=== PATIENT | female | born 1940 | race Caucasian/White ===

== ENCOUNTER 2020-12-30 07:29 | Day surgery (SDC) | payer OTHER ==
--- OUTSIDE RECORDS SUMMARY | 2020-12-30 07:33 | XMS REPORT | Continuity of Care Document ---
:1940 Author Organization [facility] t Address [address] [place] [address] [place] [id number] Care Team Providers Name Role Phone Unavailable Unavailable Unavailable Problems This patient has no known problems. Allergies, Adverse Reactions, Alerts This patient has no known allergies or adverse reactions. Medications This patient has no known medications. Procedures This patient has no known procedures. Results This patient has no known results.
[2020-12-30] MEDS ORDERED: NA CHLORIDE 0.9% 500 ML ONE (08:09)
[2020-12-30 08:53] VITALS: BMI 17.5
[2020-12-30 11:35] VITALS: TEMP 98.1; O2SAT 100
[2020-12-30 13:25] VITALS: BP 110/67
[2020-12-30 14:43] LABS: Hematocrit 31.9 % (36.0-45.0)
== END 2020-12-30 14:25 | disposition home or self-care (01) ==
LOC: DS 07:29
PROVIDERS: ATTEND Family Medicine
DX: D64.9 Anemia, unspecified (principal)
CPT/HCPCS: 36415; 86900; 86850; 86901; 85018; 85014; 36430; P9016 ×2; J7050

== ENCOUNTER 2023-04-17 10:05 | Emergency (ER) | payer OTHER ==
--- OUTSIDE RECORDS SUMMARY | 2023-04-17 10:09 | XMS REPORT | Continuity of Care Document ---
:1940 Author Organization [facility] [place] t Address [address] [place] [address] [place] [address] Care Team Providers Name Role Phone RHINA PARISI Primary Care Physician Unavailable CORA BLEVINS Attending Clinician Unavailable CORA BLEVINS Attending Clinician Unavailable Haim Dang Attending Clinician Unavailable Vaccine, [facility] Attending Clinician Unavailable Dread Cordon MD Attending Clinician DRAED CORDON Attending Clinician Unavailable Doctor Unassigned, [place] Attending Clinician Unavailable Leobardo Davis DO Attending Clinician LEOBARDO DAVIS Attending Clinician Unavailable Alfred Castillo Admitting Clinician Unavailable Haim Dang Admitting Clinician Unavailable Payers Payer Name Policy Type Policy Number Effective Date Expiration Date S holli MEDICARE PART A [id number] 2007 \T\ [id number] 00:00:00 Problems Condition Condition Condition Status Onset Resolution Last Treating Co mments Source Name Details Category Date Date Treatment Clinician Date Cellulitis Cellulitis Disease Active U nivers and and 3-07 [place] abscess [place] buttock 00 Medical Branch Dense Dense Disease Active Univers breast breast 3-07 ity of tissue tissue 00:00: [address] Family Family Disease Active [facility] history of history of 01-23 it y of breast breast 00:00: [place] cancer in cancer in [facility] [place] sister sister Branch Allergies, Adverse Reactions, Alerts Allergy Allergy Status Severity Reaction(s) Onset Inactive Treating Comm ents Source Name Type Date Date Clinician codeine DA Active U Unknown 2021-11 [facility]-21 [place] 00:00: [address] CODEINE DA Active U NAUSEA 2004- [facility] 4- [place] 00:00: [address] No Known DA Active U 2004- [facility] Contrast - [place] Allergie 00:00: [address] No Known DA Active U [facility] Food 02-23 [place] Allergie 00:00: [address] No Known DA Active U [facility] Other 02-23 [place] Allergie 00:00: [address] NO KNOWN Drug Active Univers ALLERGIE Class ity of S [facility] Social History Social Habit Start Date Stop Date Quantity Comments Source Tobacco use and 2022-01-23 2022-01-23 Smokeless tobacco Un iversity of exposure 00:00:00 00:00:[address] [facility] Alcohol intake 2022-01-23 2022-01-23 Ex-drinker [facility] 00:00:00 00:00:00 (finding) [facility] Sex Assigned At [birth year] Universit y of 00:00:00 00:00:00 [facility] Smoking Status Start Date Stop Date Source Never smoked tobacco [facility] Medications Ordered Filled Start Stop Current Ordering Indication Dosage Frequency Signature Comments Components Source Medication Medication Date Date Medication? Clinician (SIG) Name Name ascorbic Yes Take by Univer s acid -07 mouth. ity of (VITAMIN C 11:22: [place] ORAL) Medical Branch BIOTIN ORAL Yes Take by Uni vers 3-07 mouth. ity of 11:22: [place] 14 [facility] Branch rivaroxaban Yes 15mg Take 15 mg Univers (XARELTO) 307 by mouth 2 ity of 15 mg 11:22: (two) [place] tablet 14 times Medical daily. Branch amiodarone Yes 100mg Take 100 Un matt 100 mg 3-07 mg by ity of tablet 11:22: mouth [place] 14 daily. / Medical tablet Branch daily ferrous Yes 324mg Take 324 Unive rs sulfate 324 3-07 mg by ity of mg (65 mg 11:22: mouth [place] iron) EC 14 daily with Medic al tablet breakfast. Branch Zinc 50 mg Yes Take by Univ ers Tab 3-07 mouth. ity of 11:22: [place] [address] Medical Branch TURMERIC Yes Take by Univer s ORAL 3-07 mouth. ity of 11:22: [place] [address] Medical Branch calcium Yes Take by Univers carbonate/v 3-07 mouth. ity of itamin D3 11:22: [place] (VITAMIN 14 Medical D-3 ORAL) Branch vitamin E Yes Take by Unive rs acetate 3-07 mouth. ity of (VITAMIN E 11:22: [place] ORAL) 14 Medical Branch cyanocobala Yes Take by Uni vers min, 3-07 mouth. ity of vitamin 11:22: [place] B-12, 14 Medical (VITAMIN Branch B-12 ORAL) Yes Take by Univer s vit 3-07 mouth. ity of no.124/iron 11:22: [place] /folic Medical ( Branch VITAMIN ORAL) ascorbic Yes Take by Univer s acid 3-07 mouth. ity of (VITAMIN C 11:22: [place] ORAL) 14 Medical Branch BIOTIN ORAL Yes Take by Uni vers 3-07 mouth. ity of 11:22: [place] [address] Medical Branch rivaroxaban Yes 15mg Take 15 mg Univers (XARELTO) 3-07 by mouth 2 ity of 15 mg 11:22: (two) [place] tablet 14 times Medical daily. Branch amiodarone Yes 100mg Take 100 Un matt 100 mg 3-07 mg by ity of tablet 11:22: mouth [place] 14 daily. 11/22 Medical tablet Branch daily ferrous Yes 324mg Take 324 Unive rs sulfate 324 3-07 mg by ity of mg (65 mg 11:22: mouth [place] iron) EC 14 daily with Medic al tablet breakfast. Branch Zinc 50 mg Yes Take by Univ ers Tab 3-07 mouth. ity of 11:22: [place] [address] Medical Branch TURMERIC Yes Take by Univer s ORAL 3-07 mouth. ity of 11:22: [place] 14 Medical Branch calcium Yes Take by Univers carbonate/v 3-07 mouth. ity of itamin D3 11:22: [place] (VITAMIN 14 Medical D-3 ORAL) Branch vitamin E Yes Take by Unive rs acetate 3-07 mouth. ity of (VITAMIN E 11:22: [place] ORAL) 14 Medical Branch cyanocobala Yes Take by Uni vers min, 3-07 mouth. ity of vitamin 11:22: [place] B-12, 14 Medical (VITAMIN Branch B-12 ORAL) Yes Take by Univer s vit 3-07 mouth. ity of no.124/iron 11:22: [place] /folic 14 Medical ( Branch VITAMIN ORAL) ascorbic Yes Take by Univer s acid 3-07 mouth. ity of (VITAMIN C 11:22: [place] ORAL) 14 Medical Branch BIOTIN ORAL Yes Take by Uni vers 3-07 mouth. ity of 11:22: [place] [address] Medical Branch rivaroxaban Yes 15mg Take 15 mg Univers (XARELTO) 3-07 by mouth 2 ity of 15 mg 11:22: (two) [place] tablet 14 times Medical daily. Branch amiodarone Yes 100mg Take 100 Un matt 100 mg 3-07 mg by ity of tablet 11:22: mouth [place] 14 daily. 1/4 Medical tablet Branch daily ferrous Yes 324mg Take 324 Unive rs sulfate 324 3-07 mg by ity of mg (65 mg 11:22: mouth [place] iron) EC 14 daily with Medic al tablet breakfast. Branch Zinc 50 mg Yes Take by Univ ers Tab 3-07 mouth. ity of 11:22: [place] 14 Medical Branch TURMERIC Yes Take by Univer s ORAL 3-07 mouth. ity of 11:22: [place] [address] Medical Branch calcium Yes Take by Univers carbonate/v 3-07 mouth. ity of itamin D3 11:22: [place] (VITAMIN 14 Medical D-3 ORAL) Branch vitamin E Yes Take by Unive rs acetate 3-07 mouth. ity of (VITAMIN E 11:22: [place] ORAL) 14 Medical Branch cyanocobala Yes Take by Uni vers min, 3-07 mouth. ity of vitamin 11:22: [place] B-12, 14 Medical (VITAMIN Branch B-12 ORAL) Yes Take by Univer s vit 3-07 mouth. ity of no.124/iron 11:22: [place] /folic 14 Medical ( Branch VITAMIN ORAL) ascorbic Yes Take by Univer s acid 3-07 mouth. ity of (VITAMIN C 11:22: [place] ORAL) 14 Medical Branch BIOTIN ORAL Yes Take by Uni vers 3-07 mouth. ity of 11:22: [place] [address] Medical Branch rivaroxaban Yes 15mg Take 15 mg Univers (XARELTO) 3-07 by mouth 2 ity of 15 mg 11:22: (two) [place] tablet 14 times Medical daily. Branch amiodarone Yes 100mg Take 100 Un matt 100 mg 3-07 mg by ity of tablet 11:22: mouth [place] 14 daily. 1/4 Medical tablet Branch daily ferrous Yes 324mg Take 324 Unive rs sulfate 324 3-07 mg by ity of mg (65 mg 11:22: mouth [place] iron) EC 14 daily with Medic al tablet breakfast. Branch Zinc 50 mg Yes Take by Univ ers Tab 3-07 mouth. ity of 11:22: [place] [address] Medical Branch TURMERIC Yes Take by Univer s ORAL 3-07 mouth. ity of 11:22: [place] [address] Medical Branch calcium Yes Take by Univers carbonate/v 3-07 mouth. ity of itamin D3 11:22: [place] (VITAMIN 14 Medical D-3 ORAL) Branch vitamin E Yes Take by Unive rs acetate 3-07 mouth. ity of (VITAMIN E 11:22: [place] ORAL) 14 Medical Branch cyanocobala Yes Take by Uni vers min, 3-07 mouth. ity of vitamin 11:22: [place] B-12, 14 Medical (VITAMIN Branch B-12 ORAL) Yes Take by Univer s vit 3-07 mouth. ity of no.124/iron 11:22: [place] /folic 14 Medical ( Branch VITAMIN ORAL) ascorbic Yes Take by Univer s acid 3-07 mouth. ity of (VITAMIN C 11:22: [place] ORAL) 14 Medical Branch BIOTIN ORAL Yes Take by Uni vers 3-07 mouth. ity of 11:22: [place] [address] Medical Branch rivaroxaban Yes 15mg Take 15 mg Univers (XARELTO) 307 by mouth 2 ity of 15 mg 11:22: (two) [place] tablet 14 times Medical daily. Branch amiodarone Yes 100mg Take 100 Un matt 100 mg 3-07 mg by ity of tablet 11:22: mouth [place] 14 daily. 1/ Medical tablet Branch daily ferrous Yes 324mg Take 324 Unive rs sulfate 324 3-07 mg by ity of mg (65 mg 11:22: mouth [place] iron) EC 14 daily with Medic al tablet breakfast. Branch Zinc 50 mg Yes Take by Univ ers Tab 3-07 mouth. ity of 11:22: [place] [address] Medical Branch TURMERIC Yes Take by Univer s ORAL 3-07 mouth. ity of 11:22: [place] [address] Medical Branch calcium Yes Take by Univers carbonate/v 3-07 mouth. ity of itamin D3 11:22: [place] (VITAMIN 14 Medical D-3 ORAL) Branch vitamin E Yes Take by Unive rs acetate 3-07 mouth. ity of (VITAMIN E 11:22: [place] ORAL) 14 Medical Branch cyanocobala Yes Take by Uni vers min, 3-07 mouth. ity of vitamin 11:22: [place] B-12, 14 Medical (VITAMIN Branch B-12 ORAL) Yes Take by Univer s vit 3-07 mouth. ity of no.124/iron 11:22: [place] /folic 14 Medical ( Branch VITAMIN ORAL) traZODone 2021- No Univers 50 mg 12-17 ity of tablet 00:00: 00:00 [place] 00 :00 Medical Branch traZODone 2021- No Univers 50 mg 12-17 ity of tablet 00:00: 00:00 [place] 00 :00 Medical Branch mirtazapine Yes Univer s 15 mg 12-16 ity of tablet 00:00: [place] 00 Medical Branch mirtazapine 2021-0 Yes Univer s 15 mg 1-28 ity of tablet 00:00: [place] Medical [facility] mirtazapine 2021-0 Yes Univer s 15 mg 1-28 ity of tablet 00:00: [place] Medical [facility] mirtazapine 2021-0 Yes Univer s 15 mg 1-28 ity of tablet 00:00: [place] [address] Medical Branch mirtazapine 2021-0 Yes Univer s 15 mg 1-28 ity of tablet 00:00: [place] [address] Medical Branch pantoprazol 2021-0 Yes Univer s e 40 mg EC 1-20 ity of tablet 00:00: [place] [address] Medical Branch pantoprazol 2021-0 Yes Univer s e 40 mg EC 1-20 ity of tablet 00:00: [place] [address] Medical Branch pantoprazol 2021-0 Yes Univer s e 40 mg EC 1-20 ity of tablet 00:00: [place] [address] Medical Branch pantoprazol 2021-0 Yes Univer s e 40 mg EC 1-20 ity of tablet 00:00: [place] [address] Medical Branch pantoprazol 2021-0 Yes Univer s e 40 mg EC 1-20 ity of tablet 00:00: [place] [address] Medical Branch pantoprazol 2021-0 2- No Unive rs e 20 mg EC 1-20 03-07 ity of tablet 00:00: 00:00 [place] 00 :00 Medical Branch pantoprazol 2021-0 2- No Unive rs e 20 mg EC 1-20 03-07 ity of tablet 00:00: 00:00 [place] 00 :00 Medical Branch carvediloL 2021-0 Yes Univers 3.125 mg 1-18 ity of tablet 00:00: [place] [address] Medical Branch carvediloL 2021-0 Yes Univers 3.125 mg 1-18 ity of tablet 00:00: [place] [address] Medical Branch carvediloL 2021-0 Yes Univers 3.125 mg 1-18 ity of tablet 00:00: [place] [address] Medical Branch carvediloL 2021-0 Yes Univers 3.125 mg 1-18 ity of tablet 00:00: [place] [address] Medical Branch carvediloL 2021-0 Yes Univers 3.125 mg 1-18 ity of tablet 00:00: [place] [address] Medical Branch levothyroxi 2020-11 Yes Univer s ne 137 mcg 2-20 ity of tablet 00:00: [place] [facility] levothyroxi 2020-11 Yes Univer s ne 137 mcg 2-20 ity of tablet 00:00: [place] [facility] levothyroxi 2020-11 Yes Univer s ne 137 mcg 2-20 ity of tablet 00:00: [place] [facility] levothyroxi 2020-11 Yes Univer s ne 137 mcg 2-20 ity of tablet 00:00: [place] [facility] levothyroxi 2020-11 Yes Univer s ne 137 mcg 2-20 ity of tablet 00:00: [place] [facility] Immunizations Ordered Filled Immunization Date Status Comments [facility] e Immunization Name Name SARS-COV-2 COVID-19 2022-10-06 Completed Unive rsity of VACCINE 12 YRS+, 00:00:00 [facility] dical BIVALENT 0.5ML, IM, Branc h (MODERNA BOOSTER) SARS-COV-2 COVID-19 2022-03-15 Completed Unive rsity of MODERNA 0.25ML 00:00:00 [place] Medi [place] BOOSTER VACCINE Branch SARS-COV-2 COVID-19 2022-03-15 Completed Unive rsity of MODERNA 0.25ML 00:00:00 [place] Medi [place] BOOSTER VACCINE Branch SARS-COV-2 COVID-19 2022-03-15 Completed Unive rsity of MODERNA 0.25ML 00:00:00 [place] Medi [place] BOOSTER VACCINE Branch Td 2019-09-08 Completed University of 00:00:00 [facility] Td 2019-09-08 Completed University of 00:00:00 [facility] Td 2019-09-08 Completed University of 00:00:00 [facility] Td 2019-09-08 Completed University of 00:00:00 [facility] Td 2019-09-08 Completed University of 00:00:00 [facility] Vital Signs Vital Name Observation Time Observation Value Comments Source Systolic blood 2022-01-23 17:13:00 128 mm[Hg] Univer sity of pressure [facility] Diastolic blood 2022-01-23 17:13:00 82 mm[Hg] Unive rsity of pressure [facility] Heart rate 2022-01-23 17:13:00 78 /min [facility] Body temperature 2022-01-23 17:13:00 36.67 Liza [facility] Respiratory rate 2022-01-23 17:13:00 16 /min [facility] Body height 2022-01-23 17:13:00 170.2 cm [facility] Body weight 2022-01-23 17:13:00 54.091 kg [facility] BMI 2022-01-23 17:13:00 18.68 kg/m2 [facility] Procedures Procedure Date / Time Performed Performing Clinician Marian pickering [id number] 2022-11-08 00:00:00 PEPGR [facility] [id number] 2022-11-08 00:00:00 PEPGR [facility] SARS-COV-2 COVID-19 2022-10-06 20:26:44 Doctor Unassigned, No Un iversity of [place] VACCINE 12 YRS+, [facility] BIVALENT 0.5ML, IM (MODERNA BOOSTER) ASSIGNMENT OF BENEFITS 2022-10-06 19:41:41 Doctor Unassigned, No [facility] SARS-COV-2 COVID-19 2022-03-30 16:52:49 Doctor Unassigned, No Un iversity of [place] VACCINE [facility] BOOSTER,0.25ML,IM (MODERNA) Encounters Start End Encounter Admission Attending Care Care Encounter Source Date/Time Date/Time Type Type Clinicians Facility Department ID 2023-01-23 2023-01-23 Outpatient CORA BRADFORD [facility] B [id number] [facility] 09:00:00 09:00:00 CORA BLEVINS [facility] 2023-01-23 2023-01-23 Outpatient R CORA BLEVINS [facility] B [id number] [facility] 09:00:00 09:00:00 CORA BLEVINS [facility] 2022-12-25 2022-12-25 Outpatient PADMA Brand SURG [id number] [facility] 07:50:00 07:50:[address] [facility] 2022-11-08 2022-11-09 Inpatient PADMA Brand ADMI [id number] [facility] 17:06:00 11:33:[address] [facility] 2022-10-06 2022-10-06 Imm/Inj Vaccine, [facility] [id number] Univers 14:00:00 14:10:00 Visit Dread Cordon 350.1.13.10 [place] [id number] Pa dical NAL 044 [facility] 2022-10-06 2022-10-06 Outpatient R [facility] [id number] Univers 14:00:00 14:00:00 DREAD colindres [facility] 2022-10-06 2022-10-06 Orders Doctor [place] [id number] Univers 00:00:00 00:00:00 Only Unassigned, BARB 350.1.13.10 ity of [place] [facility] 4.2.7.2.686 Mamadou as [id number] [place] [address] Branch 2022-03-15 2022-03-15 Imm/Inj Vaccine, [facility] [id number] Univers 08:30:00 08:52:09 Visit Leobardo Davis 350.1.13 .10 ity [facility] [place] [id number] Pa dicme NAL 044 [facility] 2022-03-15 2022-03-15 Outpatient R [facility] [id number] Univers 08:30:00 08:30:00 LEOBARDO colindres [facility] 2022-01-23 2022-01-23 [facility] [id number] Univers 11:00:00 11:49:04 Visit Cora CLARKE 350.1.13.10 it y of [place] [facility] [id number] [facility] 134 Branch 2022-01-23 2022-01-23 Outpatient R CORA BLEVINS [facility] B [id number] Univers 11:00:00 11:49:04 CORA BLEVINS [facility] 2022-01-23 2022-01-23 Outpatient R CORA BLEVINS [facility] B [id number] Univers 11:00:00 11:00:00 CORA BLEVINS [facility] 2020-12-28 2020-12-28 Emergency X [facility] ERT [id number] Univers 14:38:00 14:38:00 [facility] Results Test Description Test Time Test Comments Results Result Comments Source BASIC METABOLIC PANEL 2022-12-25 09:57:00 Test Item Value Reference Range Interpretation Comme nts SODIUM (test code = NA) 140 MMOL/L 137-145 N POTASSIUM (test code = K) 4.5 MMOL/L 3.5-5.1 N CHLORIDE (test code = CL) 105 MMOL/L 98-107 N CARBON DIOXIDE (test code = 31 MMOL/L 22-30 H CO2) ANION GAP (test code = GAP) 9 MMOL/L 14-24 L GLUCOSE (test code = GLU) 94 MG/DL 74-106 N BLOOD UREA NITROGEN (test 21 MG/DL 7-17 H code = BUN) GLOMERULAR FILTRATION RATE > 60 T he Glomerular Filtration Rate is (test code = GFR) a calculat ed parameterbased on serum Creatinin e, patient age and sex. GFR values less than 60 mL/min/1.73 squ are meters are indicative ofCh ronic Kidney Disease. Values less than 15 mL/min/1.73squa re meters indicate Kidney failure. The calculation forGFR is based on the CKD-EPI (2020) calculat ion. This formulais race indifferent and is the recommended formula for GFRby the National dney Foundation for Adults.The GFR will not calculate if th e sex is unknown or if thepatien t's age is <18 years. CREATININE (test code = 0.80 MG/DL 0.52-1.04 N CREAT) CALCIUM (test code = CA) 9.9 MG/DL 8.4-10.2 [id number] 09:57:00 Test Item Value Reference Range Interpretation Comments MAGNESIUM (test code = MAG) 2.0 MG/DL 1.6-2.3 N PROTHROMBIN [id number] 09:46:00 Test Item Value Reference Range Interpretation Comments PROTHROMBIN TIME 11.3 SECONDS 9.4-12.7 N PATIENT (test code = PTP) INTERNATIONAL NORMAL 1.0 0.86-1.14 N The INR is to be RATIO (test code = used only for INR) monitoring oral anticoagulantth erap y. INDICATION I NR VALUE ---- ---- ---- -------1. Prophylaxis, de ep venous thrombos is, including high risk surgery. 2.0 - 3.0 2. Prophylaxis, deep venous thrombosis, hip surgery, treatm ent for deep venous thrombosis or pulmonary prevention of systemic emboli sm in patients wit h valvular heart disease, atrial fibrillation, tissue heart va lve, or acute myocar dial infarction. 2. 0 - 3.0 3. Cement Truck Loader al prosthesis hear t valves, recurre nt systemic emboli sm. 3.0 - 4.5 PTT [id number] 09:46:00 Test Item Value Reference Range Interpretation Comments PTT ACTIVATED (test code = APTT) 34.3 SECONDS 26.2-35.4 N CBC W/AUTO [id number] 09:34:00 Test Item Value Reference Range Interpretation Comments WHITE BLOOD CELL (test code = 7.3 K/MM3 3.8-9.8 N WBC) RED BLOOD CELL (test code = 5.17 M/MM3 3.58-4.97 H RBC) HEMOGLOBIN (test code = HGB) 13.7 G/DL 11.2-14.9 N HEMATOCRIT (test code = HCT) 43.5 % 33.2-43.5 N MEAN CELL VOLUME (test code = 84 fL 80.7-99.1 N MCV) MEAN CELL HGB (test code = MCH) 26.5 pg 27.0-34.1 L MEAN CELL HGB CONCETRATION 31.5 % 32.2-35.7 L (test code = MCHC) RED CELL DISTRIBUTION WIDTH 19.7 % 12.1-15.2 H (test code = RDW) PLATELET COUNT (test code = 299 K/MM3 129-368 N PLT) MEAN PLATELET VOLUME (test code 10.9 fl 7.4-10.4 H = MPV) NEUTROPHIL % (test code = NT%) 75.5 % 43-75 H IMMATURE GRANULOCYTE % (test 0.5 % 0.0-2.0 N code = IG%) LYMPHOCYTE % (test code = LY%) 15.1 % 14-44 N MONOCYTE % (test code = MO%) 7.2 % 4-13 N EOSINOPHIL % (test code = EO%) 1.2 % 0-6 N BASOPHIL % (test code = BA%) 0.5 % 0-2 N NUCLEATED RBC % (test code = 0.0 % 0-1.0 N NRBC%) NEUTROPHIL # (test code = NT#) 5.52 K/mm3 2.0-7.6 N IMMATURE GRANULOCYTE # (test 0.04 x10 3/uL 0-0.03 H code = IG#) LYMPHOCYTE # (test code = LY#) 1.11 K/mm3 1.0-3.8 N MONOCYTE # (test code = MO#) 0.53 K/mm3 0.1-0.8 N EOSINOPHIL # (test code = EO#) 0.09 K/mm3 0.0-0.2 N BASOPHIL # (test code = BA#) 0.04 K/mm3 0.0-0.2 N NUCLEATED RBC # (test code = 0.00 K/mm3 0.0-0.1 N NRBC#) Notes Date/Time Note Provider Source 2023-01-16 08:41:00-00:00 [id number] [address] PATIENT NAME: DENAE MEDRANO ADMIT DATE: 2 ACCOUNT NO: [id number] [facility] 82 REPORT TYPE: CARDIAC CATHETERIZATION REPORT SEX: F ADMITTING PHYSICIAN:Haim Dang MD ATTENDING PHYSICIAN:Haim Dang MD PROCEDURE DATE: 11/08/2022 ADDENDUM TO THE CARDIAC CATHETERIZATION REPORT: , RID #[id number]. PROCEDURE: Watchman An intravenous heparin bolus was administered af ter obtaining femoral venous access. An additional therapeutic intravenous he carlos bolus was administered following transseptal puncture. Dictated By: Haim Dang MD Date Dictated: 01/16/2023 08:41:46 Date Transcribed: 01/16/2023 08:58:57 [facility] Receipt ID: [id number] Authenticated by Haim Dang MD On 01/16/20 02:11:27 PM at 0211 PATIENT NAME: DENAE MEDRANO [id number] 2022-12-29 10:10:00-00:00 [id number] [facility] [id number] [place] [address] PATIENT NAME: DENAE MEDRANO ADMIT DATE: 3 ACCOUNT NO: [id number] ROOM NO: AGE: 82 REPORT TYPE: eTRANSESOPHAGEAL ECHO SEX: F ADMITTING PHYSICIAN: ATTENDING PHYSICIAN:Haim Dang MD *[facility]* [id number] [place] [id number] Transesophageal Echocardiogram Patient: Denae Medrano Study Date: 12/25/2022 BP: Location: [facility] URN: [id number] 59 : 1940 Age: 82 Height: / Gender: F Weight: / BMI/BSA: / *Ordering Physician: * Haim Dang MD *Interpreting Physician: * Haim Dang MD *Marketing Finance Specialist: Lorelei Amor Indications: WATCHMAN. Study data: Consent: The risks, benefits, and al ternatives to the procedure were explained to the patient and info rmed consent was obtained. Procedure: Initial setup: The patient was brought to the laboratory in the fasting state.Intravenous acce ss was obtained. Surface ECG leads and pulse oximetric signals were monit ored. Sedation. Moderate sedation was administered by cardiology staff. T ransesophageal echocardiography was performed. Topical anesthes ia was obtained using viscous lidocaine. A transesophageal probe was i nserted by the attending pot liner without difficulty. Images were obt ained using a [employer] cardiac ultrasound machine. Image quality was adequate. Complete 2D, complete spectral Doppler, and color Doppler. Location: atheterization laboratory. Patient status: Outpatient. Patient room number: 6. Study status: Routine. Study completion: The patient t olerated the procedure well. There were no complications. Findings PATIENT NAME: DENAE MEDRANO [id number] [place] [address] PATIENT NAME: DENAE MEDRANO ADMIT DATE: 3 ACCOUNT NO: [id number] ROOM NO: AGE: 82 REPORT TYPE: eTRANSESOPHAGEAL ECHO SEX: F ADMITTING PHYSICIAN: ATTENDING PHYSICIAN:Haim Dang MD Left ventricle: The cavity size is normal. Systo lic function is normal. There is no evidence of a thrombus. Left atrium: The atrium is normal in size. Post Watchman: No evidence of thrombus in the atrial cavity or appendage. T here is trivial residual flow around the Watchman occluder device located at the 0 degrees view. There is trivial residual flow around the Watchm an occluder device with venacontracta measuring 2.8mm located at the 45 degrees view. Atrial septum: No defect or patent foramen ovale is identified. Echo contrast study shows no [id number]-st-tjfg atrial lev el shunt. No evidence of thrombus. Aortic valve: The leaflets are normal thickness. There is no evidence of stenosis. There is mild regurgitation. Mitral valve: The leaflets are normal thickness. There is no evidence of stenosis. There is mild regurgitation. Tricuspid valve: There is no evidence of stenosi s. There is mild regurgitation. Pulmonic valve: Not well visualized. There is no evidence of stenosis. There is no significant regurgitation. Conclusions Summary: 1. Left ventricle: The cavity size is normal. Sy stolic function is normal. There is no evidence of a thrombus. 2. Left atrium: Post Watchman: No evidence of th rombus in the atrial cavity or appendage. There is trivial residual flow around the Watchman occluder device located at the 0 degre es view. There is trivial residual flow around the Watchman occlu krissy device with venacontracta measuring 2.8mm located at the 45 degrees view. 3. Atrial septum: No defect or patent foramen ov murali is identified. Echo contrast study shows no [id number]-[id number]-uren atrial le omi shunt. No evidence of thrombus. Prepared and electronically signed by Haim Dang MD 12/29/2022 10:10 PATIENT NAME: DENAE MEDRANO [phone] [place] [address] PATIENT NAME: DENAE MEDRANO ADMIT DATE: 3 ACCOUNT NO: [id number] ROOM NO: AGE: 82 REPORT TYPE: eTRANSESOPHAGEAL ECHO SEX: F ADMITTING PHYSICIAN: ATTENDING PHYSICIAN:Haim Dang MD at 1010 PATIENT NAME: DENAE MEDRANO [id number] 2022-12-25 09:40:00-00:00 [id number] [place] [address] PATIENT NAME: DENAE MEDRAON ADMIT DATE: 3 ACCOUNT NO: [id number] ROOM NO: AGE: 82 REPORT TYPE: ELECTROCARDIOGRAM SEX: F ADMITTING PHYSICIAN: ATTENDING PHYSICIAN:Haim Dang MD Order: [id number] Test Reason : POST WATCHMAN Test Date/Time Stamp: SunDec 25 2022 09:40:38 Blood Pressure : / mmHG Vent. Rate : 070 BPM Atrial Rate : 070 BPM P-R Int : 128 ms QRS Dur : 126 ms QT Int : 456 ms P-R-T Axes : 043 -37 097 degree s QTc Int : 492 ms Normal sinus rhythm with sinus arrhythmia Left axis deviation Left bundle branch block Abnormal ECG When compared with ECG of 08-NOV-2022 14:18, Sinus rhythm has replaced Atrial fibrillation Confirmed by RANJEET MAGALLANES ([id number]) on 12/25/2022 5 :55:12 PM Referred By: Alfred Castillo Confirmed by:RANJEET KING at 1755 PATIENT NAME: DENAE MEDRANO [id number] 2022-11-15 08:18:00-00:00 [id number] [place] [address] PATIENT NAME: DENAE MEDRANO ADMIT DATE: 2 ACCOUNT NO: [id number] ROOM NO: Z.358 AGE: 81 REPORT TYPE: DISCHARGE SUMMARY REPORT SEX: F ADMITTING PHYSICIAN:Haim Dang MD ATTENDING PHYSICIAN:Haim Dang MD ADMISSION DATE: 11/08/2022 17:06:00 DISCHARGE DATE: 11/09/2022 11:33:00 ADMISSION DIAGNOSES: 1. Paroxysmal atrial fibrillation -- CHADS-VASc score 4. 2. Iron deficiency anemia. POSTPROCEDURE DIAGNOSES: 1. Paroxysmal atrial fibrillation -- CHADS-VASc Score 4. 2. Iron deficiency anemia. HOSPITAL COURSE: This is a 81-year-old female wi th a history of paroxysmal atrial fibrillation and iron deficiency anemia. She underwent a successful left atrial appendage closure with a Watchman device. She was stable on the day of discharge, feeling well. DISCHARGE MEDICATIONS: Per the medical reconcili ation report. DISCHARGE DIET: Heart-healthy, low-fat, and low cholesterol diet. FOLLOWUP: The patient is to follow up in 1 week. Dictated By: Haim Dang MD Date Dictated: 11/15/2022 08:18:06 Date Transcribed: 11/16/2022 02:29:32 GSP/LRS Receipt ID: [id number] Authenticated and Edited by Haim Dang MD On 11/16/22 6:49:00 PM at 0651 PATIENT NAME: DENAE MEDRANO [id number] 2022-11-10 01:23:00-00:00 [id number] [place] [address] PATIENT NAME: DENAE MEDRANO ADMIT DATE: 2 ACCOUNT NO: [id number] ROOM NO: [facility] AGE: 81 REPORT TYPE: eTRANSESOPHAGEAL ECHO SEX: F ADMITTING PHYSICIAN:Haim Dang MD ATTENDING PHYSICIAN:Haim Dang MD *[facility]* [address] [place], [place] [id number] Transthoracic Echocardiogram Patient: Denae Medrano Study Date: 11/08/2022 BP: Location: [facility] URN: [id number] 242 : 1940 Age: 81 Height: / Gender: F Weight: / BMI/BSA: / *Ordering Physician: * Haim Dang MD *Interpreting Physician: * Haim Dang MD *Marketing Finance Specialist: * Audrey Barber RDCS, RCS Indications: PAROXYSMAL A.FIB. Study data: Transthoracic echocardiogram. Proced ure: Transthoracic echocardiography was performed. Images were obta ined using a [employer] cardiac ultrasound machine. Image quality was adequate. Complete 2D, complete spectral Doppler, and color Doppler. Location: [place] [address]. Patient status: Outpatient. Findings Left ventricle: The cavity size is normal. Systo lic function is normal. Wall motion is normal; there are no regional wal l motion abnormalities. Right ventricle: The cavity size is normal. Syst olic function is normal. Left atrium: The atrium is normal in size. Post Watchman: No evidence of thrombus in the atrial cavity or appendage.Th ere is no evidence of residual flow around the Watchman occluder devic e. Right atrium: The atrium is normal in size. Aorta: The aorta is mildly calcified. PATIENT NAME: DENAE MEDRANO [id number] [phone] [place] [address] PATIENT NAME: DENAE MEDRANO ADMIT DATE: ACCOUNT NO: [id number] ROOM NO: Z.358 AGE: 81 REPORT TYPE: eTRANSESOPHAGEAL ECHO SEX: F ADMITTING PHYSICIAN:Haim Dang MD ATTENDING PHYSICIAN:Haim Dang MD Aortic valve: The leaflets are mildly calcified. There is mild regurgitation. Mitral valve: The leaflets are mildly calcified. There is mild regurgitation. Tricuspid valve: The leaflets are normal thickne ss. There is no significant regurgitation. Pulmonic valve: Not well visualized. Conclusions Summary: Left ventricle: The cavity size is norm al. Systolic function is normal. Wall motion is normal; there are no r egional wall motion abnormalities. Prepared and electronically josé miguel d by Haim Dang MD 11/10/2022 01:22 at 0123 PATIENT NAME: DENAE MEDRANO [id number] 2022-11-09 06:07:00-00:00 [facility] ([facility] Cardiology Progress Note REPORT#:[id number] REPORT STATUS: Signed DATE:11/09/22 TIME: 06 PATIENT: DENAE MEDRANO UNIT #: [id number] ROOM/BED: [address] : 42 AGE: 81 SEX: F ATTEND: Dez Dang MD ADM AUTHOR: Haim Dang MD * ALL edits or amendments must be made on the Eyeview/Histros document * Subjective Chief complaint: AFIB Patient reports: No: chest pain, palpitations, shortness of breat h. Objective General VS/I O: 24 hour I O ending at 0700: 11/09 0700 11/08 1900 Intake Total Output Total 550 Balance -550 Output, Urine 550 Vital Signs: Date Time Temp Pulse Resp B/P B/P Pulse O2 O2 Flow FiO2 Mean Ox Delivery Rate 11/09 0400 66 20 121/56 81 95 11/09 0300 69 21 96/46 67 94 11/09 0200 75 11 96/44 63 94 11/09 0102 97.5 11/09 0101 79 24 124/72 82 98 11/09 0000 71 20 106/48 69 92 11/08 2300 77 20 103/66 80 100 11/080 66 20 99/45 65 95 11/08 2100 67 20 91/43 62 95 11/08 2001 73 22 95/42 61 97 11/08 1954 98.6 11/08 1900 69 17 115/58 81 100 11/08 1830 72 11/08 1808 74 25 110/51 74 97 11/08 1753 81 22 123/55 79 98 PATIENT WEIGHT: Weight (lb): Weight (oz): Weight (kg): Medications: Active Meds + DC'd Last 24 Hrs Sodium Chloride (SODIUM CHLORIDE 0.9%) 1,000 ML ONCE ONE IV (DC) Ephedrine Sulfate (ePHEDrine sulfate) 0 .STK-MED ONE .ROUTE (DC) Rocuronium Ellinger (ZEMURON) 0 .STK-MED ONE .ROU TE (DC) Succinylcholine Chloride (Quelicin) 0 .STK-MED O NE .ROUTE (DC) Heparin Sodium (HEPARIN SODIUM) 0 .STK-MED ONE . ROUTE (DC) Propofol (DIPRIVAN) 100 ML .STK-MED ONE IV (DC) Sodium Chloride (SODIUM CHLORIDE 0.9%) 500 ML .S TK-MED ONE IV (DC) Fentanyl Citrate (SUBLIMAZE (C-II)) 0 .STK-MED O NE .ROUTE (DC) Phenylephrine HCl (DEBI-SYNEPHRINE 1PC IJ.) 0 .ST K-MED ONE .ROUTE (DC) Protamine Sulfate (PROTAMINE SULFATE) 0 .STK-MED ONE .ROUTE (DC) Heparin Sodium (HEPARIN SODIUM) 0 .STK-MED ONE . ROUTE (DC) Heparin Sodium/Sodium Chloride (HEPARIN 1000 UNI TS/NS 500ML) 1,000 ML .STK- MED ONE IV (DC) Iopamidol (ISOVUE-300) 0 .STK-MED ONE .ROUTE (D C) Lidocaine (XYLOCAINE 1%) 0 .STK-MED ONE .ROUTE ( DC) Physical Exam General appearance: alert, awake, oriented Head/Eyes: atraumatic, normocephalic ENT: moist mucosal membranes Neck: no JVD Cardiovascular: CV assessment: regular rate and rhythm Respiratory: clear to auscultation, no distress Lower extremity: LE assessment: no edema Musculoskeletal: full range of motion Neuro/PLATING DEPARTMENT HELPER: alert, oriented X 3, CN II-XII intact Skin: dry, intact Psychiatry: normal affect, normal judgment/insig ht, normal mood Results Findings/Data: Laboratory Tests 11/09 429 Chemistry Sodium (137 - 145 MMOL/L) 138 Potassium (3.5 - 5.1 MMOL/L) 4.0 Chloride (98 - 107 MMOL/L) 112 H Carbon Dioxide (22 - 30 MMOL/L) 22 BUN (7 - 17 MG/DL) 15 Creatinine (0.52 - 1.04 MG/DL) 0.70 Glomerular Filtr Rate > 60 Glucose (74 - 106 MG/DL) 91 Calcium (8.4 - 10.2 MG/DL) 8.0 L Laboratory Tests 11/08 11/08 1137 1101 Coagulation Activated Coag Time (74 - 137 SEC) 161 H 287 H Laboratory Tests 11/09 0429 Hematology WBC (3.8 - 9.8 K/MM3) 8.3 RBC (3.58 - 4.97 M/MM3) 3.13 L Hgb (11.2 - 14.9 G/DL) 8.1 L Hct (33.2 - 43.5 %) 26.6 L MCV (80.7 - 99.1 fL) 85 MCH (27.0 - 34.1 pg) 25.9 L MCHC (32.2 - 35.7 %) 30.5 L RDW (12.1 - 15.2 %) 16.6 H Plt Count (129 - 368 K/MM3) 239 MPV (7.4 - 10.4 fl) 11.2 H Neut % (Auto) (43 - 75 %) 78.4 H Lymph % (Auto) (14 - 44 %) 9.5 L [place] % (Auto) (4 - 13 %) 9.5 Eos % (Auto) (0 - 6 %) 1.7 Baso % (Auto) (0 - 2 %) 0.4 Neut # (Auto) (2.0 - 7.6 K/mm3) 6.50 Lymph # (Auto) (1.0 - 3.8 K/mm3) 0.79 L [place] # (Auto) (0.1 - 0.8 K/mm3) 0.79 Eos # (Auto) (0.0 - 0.2 K/mm3) 0.14 Baso # (Auto) (0.0 - 0.2 K/mm3) 0.03 Immature Gran % (0.0 - 2.0 %) 0.5 Nucleated RBC % (0 - 1.0 %) 0.0 Nucleated RBCs # (Man) (0.0 - 0.1 K/mm3) 0.00 Diagnosis, Assessment Plan Free Text DxA P Notes Free Text DxA P Notes: IMP: PAF - CHADS-Vasc - 4. Anemia PLAN: d/c home f/u one week. at 0546 [facility] #:[id number] END OF REPORT 2022-11-08 17:39:00-00:00 [phone] [id number] [place] [address] PATIENT NAME: DENAE MEDRANO ADMIT DATE: 2 ACCOUNT NO: [id number] ROOM NO: .[facility] AGE: 82 REPORT TYPE: CARDIAC CATHETERIZATION REPORT SEX : F ADMITTING PHYSICIAN:Haim Dang MD ATTENDING PHYSICIAN:Haim Dang MD PROCEDURE DATE: 11/08/2022 PROCEDURE: 1. Left atrial appendage closure with Watchman d evice. 2. Intracardiac echocardiography. PREPROCEDURE DIAGNOSES: 1. Paroxysmal atrial fibrillation -- CHADS-VASc 4. 2. Hypertension. 3. Hypertensive heart disease. 4. Hypothyroidism. 5. Iron deficiency anemia requiring transfusion. POSTPROCEDURE DIAGNOSES: 1. Paroxysmal atrial fibrillation -- CHADS-VASc 4. 2. Hypertension. 3. Hypertensive heart disease. 4. Hypothyroidism. 5. Iron deficiency anemia requiring transfusion. PATHOLOGY TECHNOLOGIST: Haim Dang MD INTERNET RETAILER: None. ANESTHESIA: General endotracheal anesthesia. DESCRIPTION OF PROCEDURE: Af ter informed consent was obtained explaining to the patient the risks, benefits and alternatives, th e patient was brought to the cardiac catheterization lab in the fasting posta bsorptive state. She was prepped and draped in sterile fashion. She was b rought to the cardiac catheterization lab. Local anesthesia wa s applied over both femoral veins with 1% lidocaine. Access to the veins was obtained u sing modified Seldinger technique with a micropuncture kit and ultrasoun d guidance. Two Perclose sutures were placed in the right femoral vein in a preclose fashion. An 8-Citizen [place] sheath was then mayra delfino in the vein and connected to heparinized saline infusion. A 12-Citizen [place] long sheath was th en placed in the left femoral vein and connected to heparinized saline infusion. An int racardiac echocardiography catheter was advanced via the 12-Citizen [place] sheath p laced in the right atrium. Intracardiac echocardiograph y was performed to visualize the interatrial septum. The 8-Citizen [place] sheath in the right femoral vein w as then exchanged for a long 16-Citizen [place] sheath, which was advanced over the wire and connected to heparinized saline infusion. The dilator and wire we re removed. A VersaCross wire was then PATIENT NAME: DENAE MEDRANO [id number] advanced via the 16-Citizen [place] sheath into t he right atrium. The VersaCross sheath was then advanced over the wire. The wire and sh eath was withdrawn into the posterior septal region. After appropria te placement on the intraatrial septum in a mid low position, a tra nsseptal puncture was performed with RF energy. The wire was advanced into the left atrium and the l eft superior pulmonary vein. The VersaCross sheath was advanced over the wire . The VersaCross sheath was removed. A Watchman access double-curved sheath was then prepped and advanced over the wire into the left atrium. The dilator and wire were removed. The sheath was aspirated and flushed and con nected to heparinized saline infusion. A pigtail catheter was then advanced through the sheath and aspirated and flushed. The pigtail catheter was then placed in to the left atrial appendage. Left atrial appendage angiogram was obtained. Af ter confirmation of sizing, a 24 mm Watchman FLX device was then prepped. The pigtail catheter was removed and the Watchman FLX was advanced via the sheath into the left atrium. The device was deployed. The appropriate position wa s confirmed. The anchor stability was confirmed with a tug test. Seal was confirmed with color Doppler as well as angiography. Size was verified to hav e appropriate compression. After the above was verified, the device was rel eased. After release of the device, the Watchman delivery catheter and acces s sheath were removed. The intracardiac echocardiography was removed. The s heaths were aspirated and flushed. The 16-Citizen [place] sheath was removed and he mostasis achieved with the Perclose sutures. The 12-David nch sheath was removed and hemostasis achieved with a ioekwa-cc-gxguf suture. The patient tolerated the procedure well with no complications. Left Atrial Appendage Sizing: Initial left atria l appendage sizin degrees, width/length: 18/22, 45 degrees, 12/16, 90 degrees; 18/15, 135 degrees . CONCLUSIONS: Successful left atrial appendage cl osure with a 24 mm Watchman device. ESTIMATED BLOOD LOSS: 15 mL. COMPLICATIONS: None. Dictated By: Haim Dang MD Date Dictated: 11/08/2022 17:39:50 Date Transcribed: 11/08/2022 19:46:19 GSP/YULIA Receipt ID: [id number] CC: Ranjeet Magallanes MD (F) Authenticated and Edited by Haim Dang MD On 12/27/22 6:15:17 AM at 0617 PATIENT NAME: DENAE MEDRANO [id number] 2022-11-08 14:18:00-00:00 [id number] [place] [id number] PATIENT NAME: DENAE MEDRANO ADMIT DATE: 2 ACCOUNT NO: [id number] ROOM NO: Z358 AGE: 81 REPORT TYPE: ELECTROCARDIOGRAM SEX: F ADMITTING PHYSICIAN:Haim Dang MD ATTENDING PHYSICIAN:Haim Dang MD Order: [id number] Test Reason : AFIB Test Date/Time Stamp: SunNov 08 2022 14:18:10 Blood Pressure : / mmHG Vent. Rate : 094 BPM Atrial Rate : 086 BPM P-R Int : 000 ms QRS Dur : 130 ms QT Int : 430 ms P-R-T Axes : 000 -52 147 degree s QTc Int : 537 ms Atrial fibrillation with ventricular paced beats noted Left axis deviation Left bundle branch block Abnormal ECG When compared with ECG of 07-NOV-2022 10:25, Atrial fibrillation has replaced Sinus rhythm Vent. rate has increased BY 35 BPM QRS axis shifted left Nonspecific T wave abnormality now evident in La teral leads QT has lengthened Reconfirmed by RANJEET MAGALLANES ([id number]) on 11/09/20 22 4:17:07 PM Referred By: Haim Dang Confirmed by:RANJEET POLANCO at 7824 PATIENT NAME: DENAE MEDRANO [id number] 2022-11-07 18:18:00-00:00 [phone] [place] [address] PATIENT NAME: DENAE MEDRANO ADMIT DATE: ACCOUNT NO: [id number] ROOM NO: [facility] AGE: 81 REPORT TYPE: CONSULTATION REPORT SEX: F ADMITTING PHYSICIAN:Haim Dang MD ATTENDING PHYSICIAN:Haim Dang MD CONSULTATION DATE: 11/07/2022 CONSULT REQUESTED BY: Haim Dang MD CHIEF COMPLAINT: Paroxysmal atrial fibrillation. HISTORY OF PRESENT ILLNESS: This is a 81-year-ol d female with history of nonischemic cardiomyopathy, recovered EF , CHF, cardiac catheterization in 2002 was negative. The patient was found to have iron deficiency anemia and intolerant of iron supplements, required 2 units of blood transfusion, but because of paroxysmal atrial fibrillation, has to be on blood thinners. That is the reason the patient is here for evaluation of Watchman procedure. PAST MEDICAL HISTORY: Includ es dilated cardiomyopathy nonischemic, bradycardias with PVCs, mitral valve prolapse, hypothyroidism , osteoarthritis, history of peptic ulcer disease, history of iron deficiency anemia, left bundle-branch block. PAST SURGICAL HISTORY: Hysterectomy, right hip r epair, laparotomy. MEDICATIONS: She takes vitamin C, ferrous sulfat e, mirtazapine, Protonix, Xarelto 15 tablets which she has held yesterday, amiodarone 200 mg daily, carvedilol 6.25 twice a day, levothyroxine 6.25 b.i.d., fish oil, magnesium supplements, multivitamin, p.r.n. Benadryl, aspi rin, and tramadol p.r.n. FAMILY HISTORY: Mother and has a history of diabetes. Father also had history of heart disease. SOCIAL HISTORY: The patient does not use alcohol , did not smoke. ALLERGIES: CODEINE, ITCHING. REVIEW OF SYSTEMS: No fevers, chills, headache, or syncope. No falls. No history of liver failure or renal failure. Has not mentioned any bright colored blood in her stool, but has been anemic and requiring blood transfusion. Other review of systems negative. PHYSICAL EXAMINATION: VITAL SIGNS: Noted. HEENT: Pupils are round, reactive. Oropharynx pi nk. Tongue in midline. Uvula midline. NECK: No JVD, bruit. PATIENT NAME: DENAE MEDRANO [id number] CHEST: No crackles or wheezing. CARDIOVASCULAR: Regular rate and rhythm with occ asional extra beat. ABDOMEN: Soft, nontender, no guarding. EXTREMITIES: No cyanosis, no clubbing, no edema. CENTRAL NERVOUS SYSTEM: Cranial nerves II throug h XII intact. The patient is awake, alert, oriented. MUSCULOSKELETAL: Gait steady. SKIN: No petechiae or purpura. No bruising. PSYCHIATRIC: No anxiety, depression. ASSESSMENT: Paroxysmal atrial fibrillation, BARAK S-VASc score is 4, hypertension, hypertensive heart disease, also h istory of iron deficiency anemia, history of hypothyroidism, history of di lated cardiomyopathy with negative catheterization. PLAN: Given the history of CHADS-VASc score bein g high and a history of iron deficiency anemia, inability to tolerate the iro n supplements, left atrial appendage closure seems reasonable. I have talke d to the patient. All questions are answered. She wants to proceed wit h the Watchman. She had decision making done. The patient seems to be ap propriate for the procedure. Thank you Dr. Dang for all owing us to participate in the care of this patient. Dictated By: Mark Canales MD Date Dictated: 11/07/2022 18:18:23 Date Transcribed: 11/07/2022 21:48:38 NRK/YULIA Receipt ID: [id number] Authenticated by Mark Canales MD On 11/09/2022 12:17:26 PM Electronically Signed by Mark Canales MD on at 1217 PATIENT NAME: DENAE MEDRANO [id number] 2022-11-07 10:25:00-00:00 [phone] [place] [address] PATIENT NAME: DENAE MEDRANO ADMIT DATE: 2 ACCOUNT NO: [id number] ROOM NO: [facility] AGE: 81 REPORT TYPE: ELECTROCARDIOGRAM SEX: F ADMITTING PHYSICIAN:Haim Dang MD ATTENDING PHYSICIAN:Haim Dang MD Order: [id number] Test Reason : PRE-OP Test Date/Time Stamp: SunNov 07 2022 10:25:05 Blood Pressure : / mmHG Vent. Rate : 059 BPM Atrial Rate : 059 BPM P-R Int : 156 ms QRS Dur : 134 ms QT Int : 478 ms P-R-T Axes : 065 061 030 degree s QTc Int : 473 ms Sinus bradycardia with occasional premature vent ricular complexes Left bundle branch block Cannot rule out Septal infarct , age undetermine d Abnormal ECG No previous ECGs available Reconfirmed by RANJEET MAGALLANES ([id number]) on 11/09/20 4:16:33 PM Referred By: Haim Dang Confirmed by:RANJEET POLANCO at 1616 PATIENT NAME: DENAE MEDRANO [id number]
--- NOTE | 2023-04-17 11:39 | RAD REPORT ---
[facility]AM DES[facility]17[facility] 11:30 am CLINICAL HISTORY: Cough;Dyspnea COMPARISON: Chest Pa And Lat (2 Views) dated 06/01/2022 TECHNIQUE: Portable AP view of the chest. FINDINGS: Hyperinflation again noted. Blunting of the right costophrenic angle, may represent pleura l thickening or small effusion. No pneumothorax or effusion. The cardiomediastinal contours are unrem arkable. IMPRESSION: Trace right effusion versus pleural thickening. No other acute findings. .
[2023-04-17 12:15] LABS: Absolute Lymphocytes (CBC) 0.8 K/uL (0.7-4.9); Hematocrit 43.4 % (36.0-45.0); MCV 84.2 fL (80-100); MPV 8.5 fL (7.6-11.3); RBC Red Blood Cell Count 5.15 M/uL (3.86-4.86)
[2023-04-17 12:16] LABS: Protime INR 1.14
[2023-04-17 12:31] LABS: Troponin High Sensitivity 12.9 pg/mL (<58.9)
[2023-04-17 12:36] LABS: Blood Morphology Comment NOT SEEN (NOT SEEN); Platelet Estimate ADEQ; White Blood Cell Scan OK (OK)
--- NOTE | 2023-04-17 13:23 | RAD REPORT ---
EXAM DESCRIPTION: CT - Chest For Pe Angio - 04/17/2023 12:56 pm CLINICAL HISTORY: sob COMPARISON: None. TECHNIQUE: Dynamically enhanced axial 3 mm thick images of the chest were obtained during administra tion of 75 mL Isovue 370 IV contrast. Coronal and oblique reconstruction images were generated and re viewed. Exam utilizes a protocol for optimal evaluation of pulmonary arterial tree. Maximum intensity projections 3D imaging was utilized All CT scans are performed using dose optimization technique as appropriate and may include automated exposure control or mA/KV adjustment according to patient size. FINDINGS: A pulmonary embolus is not seen. A thoracic aortic aneurysm is not noted. A pleural effusion is not seen. A pericardial effusion is not seen. Mild to moderate alveolar opacities left lower lobe. Moderate tree-in-bud opacities predominantly rig ht lower lobe. COPD IMPRESSION: Negative for a pulmonary embolism. Bilateral pneumonia. Portion may be atypical
[2023-04-17] MEDS ORDERED: Levofloxacin 750mg IV 750 MG/150 ML BAG IV ONE (13:50)
[2023-04-17] MEDS ORDERED: predniSONE 20 MG TAB ONE (13:51)
[2023-04-17] MEDS ORDERED: LEVALBUTEROL 1.25 MG/3 ML NEB ONE (13:51)
--- NOTE | 2023-04-17 14:41 | ER ---
Nurse's Notes [facility] Name: Denae Brown Age: 82 yrs Sex: Female : 1940 Arrival Date: 04/17/2023 Time: 10:05 Bed 18 Private MD: Diagnosis: Pneumonia, unspecified organism Presentation: 04/17 10:36 Chief complaint: SOB and cough 5 months, worse over last week. Coronavirus screen: At this time, the client does not indicate any symptoms associated with coronavirus-19. Ebola Screen: No symptoms or risks identified at this time. Initial Sepsis Screen: Does the patient meet any 2 criteria? No. Patient's initial sepsis screen is negative. Does the patient have a suspected source of infection? No. Patient's initial sepsis screen is negative. Risk Assessment: Do you want to hurt yourself or someone else? Patient reports no desire to harm self or others. Onset of symptoms was April 17, 2023. 10:36 Method Of Arrival: Ambulatory 10:36 Acuity: JESSICA 3 hb Historical: - Allergies: 10:38 No Known Allergies; hb - PMHx: 10:38 Asthma; CHF; hb - Immunization history:: Adult Immunizations up to date. - Social history:: Smoking status: Patient denies any tobacco usage or history of. - Family history:: not pertinent. - Hospitalizations: : No recent hospitalization is reported. Screenin:45 [facility] ED Fall Risk Assessment (Adult) History of falling in the last 3 months, mb9 including since admission No falls in past 3 months (0 pts) Confusion or Disorientation No (0 pts) Intoxicated or Sedated No (0 pts) Impaired Gait No (0 pts) Mobility Assist Device Used No (0 pt) Altered Elimination No (0 pt) Score/Fall Risk Level 0 - 2 = Low Risk Oriented to surroundings, Maintained a safe environment, Educated pt \T\ family on fall prevention, incl call for assistance when getting out of bed. Abuse screen: Denies threats or abuse. Nutritional screening: No deficits noted. Tuberculosis screening: No symptoms or risk factors identified. Assessment: 12:44 General: Appears in no apparent distress. Behavior is calm, cooperative. Pain: Denies mb9 pain. Neuro: Saavedra Agitation-Sedation Scale (RASS): 0 - Alert and Calm Level of Consciousness is awake, alert, obeys commands, Oriented to person, place, time, situation, Appropriate for age. Cardiovascular: Denies chest pain, Patient's skin is warm and dry. Rhythm is regular. Cardiovascular: Reports fatigue. Respiratory: Reports shortness of breath cough that is Airway is patent Respiratory effort is even, unlabored, Respiratory pattern is regular, symmetrical, Breath sounds are coarse bilaterally. GI: Abdomen is flat, non-distended. GI: Bowel sounds present X 4 quads. Abd is soft and non tender X 4 quads. Derm: Skin is intact, Skin is dry, Skin is pale, Skin temperature is warm. Musculoskeletal: Range of motion: intact in all extremities. 14:21 Reassessment: Patient and/or family updated on plan of care and expected duration. Pain mb9 level reassessed. Patient is alert, oriented x 3, equal unlabored respirations, skin warm/dry/pink. Patient states feeling better. Patient states symptoms have improved. 14:55 Reassessment: Patient and/or family updated on plan of care and expected duration. Pain mb9 level reassessed. Patient is alert, oriented x 3, equal unlabored respirations, skin warm/dry/pink. Patient states feeling better. Patient states symptoms have improved. Vital Signs: 10:36 BP 106 / 82; Pulse 88; Resp 24; Temp 99.9(TE); Pulse Ox 95% on R/A; Weight 49.9 kg; hb Height 5 ft. 7 in. ; Pain 0/10; 12:46 BP 131 / 47; Pulse 76; Resp 18; Pulse Ox 97% on R/A; mb9 14:22 BP 130 / 52; Pulse 79; Resp 16; Pulse Ox 100% on R/A; mb9 10:36 Body Mass Index 17.23 (49.90 kg, 170.18 cm) hb 10:36 Pain Scale: Adult hb ED Course: 10:07 Patient arrived in ED. am2 10:15 Uli Santo MD is Attending Physician. rn 10:38 Triage completed. hb 10:39 Arm band placed on. hb 11:32 XRAY Chest (1 view) In Process Unspecified. EDMS 11:38 Jasmina Mejía, RN is Primary Nurse. iw 12:19 Flu Sent. mb9 12:19 EKG done, by ED staff, reviewed by Uli Santo MD. Inserted saline lock: 22 gauge in mb9 right forearm, using aseptic technique. 12:45 Placed in gown. Bed in low position. Call light in reach. Side rails up X 1. Client mb9 placed on continuous cardiac and pulse oximetry monitoring. NIBP monitoring applied. hospital monitor on. 12:46 No provider procedures requiring assistance completed. mb9 12:57 CT Chest For PE Angio In Process Unspecified. EDMS 14:56 IV discontinued, intact, bleeding controlled, No redness/swelling at site. Pressure mb9 dressing applied. Administered Medications: 13:45 Drug: levofloxacin IVPB 750 mg Volume: 150 ml; Route: IVPB; Infused Over: 90 mins; mb9 Site: right forearm; 13:50 Drug: predniSONE PO 60 mg Route: PO; mb9 13:50 Drug: Levalbuterol Inhalation 1.25 mg Route: Inhalation; mb9 Medication: 12:46 VIS not applicable for this client. mb9 Outcome: 14:40 Discharge ordered by . rn 14:56 Discharged to home ambulatory. mb9 14:56 Condition: stable 14:56 Discharge instructions given to patient, Instructed on discharge instructions, follow up and referral plans. Demonstrated understanding of instructions, follow-up care, medications, Prescriptions given X 4. 14:56 Patient left the ED. mb9 Signatures: Dispatcher [employer] Jasmina Rivas, RN Uli Pavon MD MD rn Baxter, Heather, RN RN hb Moreno, Amanda am2 Breneman, Mary Beth, RN RN mb9
--- NOTE | 2023-04-17 14:41 | EDPHYS ---
Physician Documentation [facility] Name: Denae Brown Age: 82 yrs Sex: Female : 1940 Arrival Date: 04/17/2023 Time: 10:05 Bed 18 Private MD: ED Physician Uli Santo HPI: 04/17 11:21 This 82 yrs old Female presents to ER via Ambulatory with complaints of Breathing rn Difficulty, Weakness. 11:22 The patient has shortness of breath with light activity. Onset: The symptoms/episode rn began/occurred 1 week(s) ago. Duration: The symptoms are intermittent. The patient's shortness of breath is aggravated by exertion, light activity, is alleviated by rest. Severity of symptoms: At their worst the symptoms were mild in the emergency department the symptoms are unchanged. The patient has experienced similar episodes in the past. The patient has not recently seen a physician. Pt reports sob with exertion and fatigue for 1 week, has had this before and was attributed to anemia in past. Denies bleeding. No fever. No chest pain. Has CHF and MVP. . Historical: - Allergies: 10:38 No Known Allergies; hb - PMHx: 10:38 Asthma; CHF; hb - Immunization history:: Adult Immunizations up to date. - Social history:: Smoking status: Patient denies any tobacco usage or history of. - Family history:: not pertinent. - Hospitalizations: : No recent hospitalization is reported. ROS: 11:22 Constitutional: Negative for fever, chills, and weight loss, ENT: Negative for injury, rn pain, and discharge, Cardiovascular: Negative for chest pain and edema, Respiratory: + mild sob Abdomen/GI: Negative for abdominal pain, nausea, vomiting, diarrhea, and constipation, MS/Extremity: Negative for injury and deformity, Skin: Negative for injury, rash, and discoloration, Neuro: Negative for headache, numbness, tingling, and seizure. Exam: 11:22 Constitutional: Thin female, no acute distress, mild tachypnea Head/Face: rn Normocephalic, atraumatic. ENT: no stridor Cardiovascular: Regular rate and rhythm. No pulse deficits. Respiratory: Mild tachypnea, no retractions Abdomen/GI: Soft, non-tender Skin: Warm, dry MS/ Extremity: Pulses equal, no cyanosis. Neurovascular intact. Full, normal range of motion. Equal circumference. Neuro: Awake and alert, GCS 15 Vital Signs: 10:36 BP 106 / 82; Pulse 88; Resp 24; Temp 99.9(TE); Pulse Ox 95% on R/A; Weight 49.9 kg; hb Height 5 ft. 7 in. ; Pain 0/10; 12:46 BP 131 / 47; Pulse 76; Resp 18; Pulse Ox 97% on R/A; mb9 14:22 BP 130 / 52; Pulse 79; Resp 16; Pulse Ox 100% on R/A; mb9 10:36 Body Mass Index 17.23 (49.90 kg, 170.18 cm) hb 10:36 Pain Scale: Adult hb MDM: 10:15 Patient medically screened. rn 14:38 Differential diagnosis: Bronchitis CHF exacerbation, Chronic Obstructive Pulmonary rn Disease Myocardial Infarction pneumonia, Pneumothorax pulmonary edema, Pulmonary Embolism. Data reviewed: vital signs, nurses notes, lab test result(s), EKG, radiologic studies, CT scan, plain films, and as a result, I will admit patient. Consideration of Admission/Observation Escalation of care including admission/observation considered. Patient declines, wants to go home. Independent interpretation of the following test(s) in the Emergency Department X-Ray: My interpretation is CXR images neg for pneumothorax or pneumonia per my interpretation. Counseling: I had a detailed discussion with the patient and/or guardian regarding: the historical points, exam findings, and any diagnostic results supporting the discharge/admit diagnosis, lab results, radiology results, the need for further work-up and treatment in the hospital. Response to treatment: the patient's symptoms have markedly improved after treatment. ED course: Pt wants to go home, no oxygen requirement, pneumonia not evident on CXR, only on CT, offered admission, wants to go home, will dc home with levaquin and return precautions. . 14:38 ED course: Pt with second-hand smoke exposure, CT shows possible signs of COPD. . rn 04/17 10:45 Order name: Basic Metabolic Panel; Complete Time: 12:51 rn 04/17 10:45 Order name: CBC with Diff; Complete Time: 12:51 rn 04/17 10:45 Order name: NT PRO-BNP; Complete Time: 12:51 rn 04/17 10:45 Order name: PT-INR; Complete Time: 12:21 rn 04/17 10:45 Order name: Troponin HS; Complete Time: 12:51 rn 04/17 10:45 Order name: Flu; Complete Time: 12:51 rn 04/17 12:36 Order name: CBC Smear Scan; Complete Time: 12:51 EDMS 04/17 10:45 Order name: XRAY Chest (1 view); Complete Time: 11:42 rn 04/17 12:21 Order name: CT Chest For PE Angio; Complete Time: 13:31 rn 04/17 10:45 Order name: EKG; Complete Time: 10:46 rn 04/17 10:45 Order name: Cardiac monitoring; Complete Time: 12:19 rn 04/17 10:45 Order name: EKG - Nurse/Tech; Complete Time: 12:19 rn 04/17 10:45 Order name: IV Saline Lock; Complete Time: 12:19 rn 04/17 10:45 Order name: Labs collected and sent; Complete Time: 12:19 rn 04/17 10:45 Order name: O2 Per Protocol; Complete Time: 12:19 rn 04/17 10:45 Order name: O2 Sat Monitoring; Complete Time: 12:19 rn Administered Medications: 13:45 Drug: levofloxacin IVPB 750 mg Volume: 150 ml; Route: IVPB; Infused Over: 90 mins; mb9 Site: right forearm; 13:50 Drug: predniSONE PO 60 mg Route: PO; mb9 13:50 Drug: Levalbuterol Inhalation 1.25 mg Route: Inhalation; mb9 Disposition Summary: 04/17/23 14:40 Discharge Ordered Location: Home rn Problem: new rn Symptoms: have improved rn Condition: Stable rn Diagnosis - Pneumonia, unspecified organism rn Followup: rn - With: Private Physician - When: As needed - Reason: Recheck today's complaints, Re-evaluation by your physician Discharge Instructions: - Discharge Summary Sheet rn - Community-Acquired Pneumonia, Adult rn Forms: - Medication Reconciliation Form rn - Thank You Letter rn - Antibiotic furnishings conservator - Prescription Opioid Use rn Prescriptions: - albuterol sulfate 90 mcg/actuation Inhalation Aerosol Powder, Breath Activated - administer 2 inhalation by INHALATION route every 4 hours As needed as needed rn for shortness of breath or wheezing; 1 Pack; Refills: 0, Product Selection Permitted - Augmentin 875-125 mg Oral Tablet - take 1 tablet by ORAL route every 12 hours for 10 days; 20 tablet; Refills: 0, rn Product Selection Permitted - Prednisone 20 mg Oral Tablet - take 3 tablets by ORAL route once daily for 5 days; 15 tablet; Refills: 0, rn Product Selection Permitted - levofloxacin 750 mg Oral Tablet - take 1 tablet by ORAL route once daily for 7 days; 7 tablet; Refills: 0, rn Product Selection Permitted Signatures: Dispatcher [employer] EDUli Fischer MD MD rn Baxter, Heather, RN RN hb Breneman, Mary Beth RN RN mb9 Corrections: (The following items were deleted from the chart) 10:50 10:15 Chest Pa And Lat (2 Views)+[email or web address] ordered. EDOH EDOH
[2023-04-17 15:16] VITALS: TEMP 99.9
[2023-04-17 15:20] VITALS: BP 130/52; O2SAT 100
--- NOTE | 2023-04-18 07:07 | EKG ---
Test Date: 2023-04-17 Test Time: 12:16:39 Carbon Dioxide Operator: MB MEASUREMENT RESULTS: Intervals: Rate: 76 ID: [id number] QRSD: 126 QT: 448 QTc: 504 [place]: P: 76 ID: [id number] QRS: -36 T: 82 INTERPRETIVE STATEMENTS: Sinus rhythm Left axis deviation Left bundle branch block Abnormal ECG No previous ECG available for comparison Electronically Signed On 04-18-23 07:06:33 CDT by Reji Perea
--- NOTE | 2023-04-18 14:38 | EKG ---
Test Date: 2023-04-17 Test Time: 13:20:00 Group Reservations Coordinator: MB MEASUREMENT RESULTS: Intervals: Rate: 75 RI: 156 QRSD: 136 QT: 490 QTc: 547 [place]: P: 69 RI: 156 QRS: -34 T: 99 INTERPRETIVE STATEMENTS: Normal sinus rhythm Left axis deviation Left bundle branch block Abnormal ECG Compared to ECG 04/17/2023 12:16:39 No significant changes Electronically Signed On 04-18-23 14:36:46 CDT by Ankit Souza
== END 2023-04-17 14:56 | disposition home or self-care (01) ==
LOC: ER 10:05
DX: J18.9 Pneumonia, unspecified organism (principal); I50.9 Heart failure, unspecified
CPT/HCPCS: 93005 ×2; 85025; 80048; 36415; 85610; 84484; 83880; 87804 ×2; 71275; 71045; 96374; 99285; Q9967; J7512; J7614